=== PATIENT | male | born 1995 | race African-American/Black ===

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

== ENCOUNTER 2017-01-20 00:22 | Observation (INO) | payer OTHER ==
[~2017-01-20] VITALS: Ht 172.7 cm; Wt 70.0 kg
[2017-01-20 00:24] VITALS: BP 145/84; PULSE 70; RESP 15; TEMP 98.9; O2SAT 100
[2017-01-20] MEDS ORDERED: SODIUM CHLOR 0.9% 1000 ML INJ 1,000 ML IV ONE ×2 (00:46→02:15)
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
[2017-01-20 00:51] VITALS: RESP 20; O2SAT 99
[2017-01-20] MEDS ORDERED: SODIUM CHLORIDE 0.9% FLUSH 10 ML FLUSH IVF PRN (01:00)
[2017-01-20 01:16] LABS: AUTOMATED NEUTROPHIL # 6.1 TH/MM3 (1.8-7.7); BASOPHIL % 0.5 % (0.0-2.0); EOSINOPHIL # 0.1 TH/MM3 (0-0.4); EOSINOPHIL % 1.4 % (0.0-4.0); HEMATOCRIT 41.6 % (39.0-51.0); HEMO FLAGS DIFF FINAL; LYMPH % 20.1 % (9.0-44.0); LYMPHOCYTE # 1.8 TH/MM3 (1.0-4.8); MEAN CELL VOLUME 80.6 FL (80.0-100.0); MEAN CORPUSCULAR HEMOGLOBIN 26.4 PG (27.0-34.0); MEAN CORPUSCULAR HGB CONC 32.7 % (32.0-36.0); MONO % 8.9 % (0.0-8.0); NEUT % 69.1 % (16.0-70.0); PLATELET COUNT 196 TH/MM3 (150-450); RED BLOOD COUNT 5.16 MIL/MM3 (4.50-5.90); RED CELL DISTRIBUTION WIDTH 14.2 % (11.6-17.2); WHITE BLOOD COUNT 8.8 TH/MM3 (4.0-11.0)
--- NOTE | 2017-01-20 01:16 | RADRPT ---
EXAM DATE/TIME: 01/20/2017 00:56 [facility] COMPARISON: No previous studies available for comparison. INDICATIONS : Cephalgia and dizziness. RADIATION DOSE: 38.18 CTDIvol (mGy) MEDICAL HISTORY : None SURGICAL HISTORY : None. ENCOUNTER: Initial ACUITY: 1 day PAIN SCALE: 9/10 LOCATION: cranial TECHNIQUE: Multiple contiguous axial images were obtained of the head. Using automated exposure control and adj ustment of the mA and/or kV according to patient size, radiation dose was kept as low as reasonably a chievable to obtain optimal diagnostic quality images. DICOM format image data is available electro nically for review and comparison. FINDINGS: CEREBRUM: The ventricles are normal for age. No evidence of midline shift, mass lesion, hemorrhage or acute in farction. No extra-axial fluid collections are seen. POSTERIOR FOSSA: The cerebellum and brainstem are intact. The 4th ventricle is midline. The cerebellopontine angle i s unremarkable. EXTRACRANIAL: The visualized portion of the orbits is intact. SKULL: The calvaria is intact. No evidence of skull fracture. CONCLUSION: Negative exam. Manuel Cloud MD on January 20, 2017 at 1:14 Board Certified Radiologist. This report was verified electronically.
[2017-01-20] MEDS ORDERED: ACETAMINOPHEN 325 MG TAB PO ONE (01:30)
[2017-01-20 01:37] LABS: ANION GAP 7 MEQ/L (5-15); BICARBONATE 28.7 MEQ/L (21.0-32.0); BLOOD UREA NITROGEN 7 MG/DL (7-18); CHLORIDE 105 MEQ/L (98-107); GLOMERULAR FILTRATION RATE 109 ML/MIN (>89); POTASSIUM 3.3 MEQ/L (3.5-5.1); SODIUM (NA) 141 MEQ/L (136-145)
[2017-01-20 01:51] LABS: CREATINE KINASE 3690 U/L (39-308)
[2017-01-20 02:03] LABS: CKMB 3.1 NG/ML (0.5-3.6)
[2017-01-20 02:30] VITALS: BP 122/77; PULSE 60; RESP 18; O2SAT 98
[2017-01-20] MEDS ORDERED: SODIUM CHLOR 0.9% 1000 ML INJ 1,000 ML IV SCH (02:54)
[2017-01-20] MEDS ORDERED: NALOXONE HCL 0.4 MG/ML AMP IV PUSH PRN (03:00)
[2017-01-20] MEDS ORDERED: SODIUM CHLORIDE 0.9% FLUSH 10 ML FLUSH IV FLUSH SCH (09:00)
--- NOTE | 2017-01-20 14:36 | EKG ---
Date Performed: 01/20/2017 Time Performed: 01:07:38 PTAGE: 21 years EKG: Sinus rhythm WITH SINUS ARRHYTHMIA BORDERLINE RIGHT AXIS DEVIATION PROBABLY WITHIN NORMAL LIMITS FOR AGE NO PREVIOUS TRACING DOCTOR: Dc Ceron Interpretating Date/Time 01/20/2017 14:34:14
== END 2017-01-20 03:29 | disposition home or self-care (01) ==
LOC: NEPE 00:22 → NEDA 02:51
PROVIDERS: ADMIT Internal Medicine; ATTEND Internal Medicine
DX: M62.82 Rhabdomyolysis (principal); S09.90XA Unspecified injury of head, initial encounter; R55 Syncope and collapse; E86.0 Dehydration; J45.909 Unspecified asthma, uncomplicated; Y09 Assault by unspecified means
CPT/HCPCS: 70450; 80048; 82550; 82552; 84484; 85025; 93005; 96360; 99285; G0378; J7030